=== PATIENT | male | born 1995 | race Caucasian/White ===

== ENCOUNTER 2017-07-04 20:44 | Emergency (ER) | payer OTHER ==
[~2017-07-04] VITALS: Ht 188 cm; Wt 80.9 kg
[2017-07-04] MEDS ORDERED: LIDOCAINE 1% MDV 20ML VIAL SC ONE (22:45)
[2017-07-04 23:41] VITALS: BP 131/80
== END 2017-07-04 23:48 | disposition home or self-care (01) ==
LOC: M ED 20:44
DX: S61.215A Laceration without foreign body of left ring finger without damage to nail, initial encounter (principal); W45.8XXA Other foreign body or object entering through skin, initial encounter; Y92.59 Other trade areas as the place of occurrence of the external cause; Y93.89 Activity, other specified; Y99.0 Civilian activity done for income or pay